=== PATIENT | male | born 1990 | race Caucasian/White ===

== ENCOUNTER 2018-01-18 22:57 | Emergency (ER) | payer OTHER ==
[2018-01-19] MEDS ORDERED: AUGMENTIN 875 MG TAB PO (00:30)
== END 2018-01-19 00:50 | disposition home or self-care (01) ==
LOC: M ED 22:57
DX: S60.811A Abrasion of right wrist, initial encounter (principal); S60.871A Other superficial bite of right wrist, initial encounter; W55.01XA Bitten by cat, initial encounter; Y92.89 Other specified places as the place of occurrence of the external cause
CPT/HCPCS: 99283

== ENCOUNTER 2018-01-27 21:35 | Emergency (ER) | payer OTHER ==
[2018-01-27] MEDS: RABIES VACCINE HUMAN 2.5 INTERNATIONAL UNITS/ML VIAL (90675) IM (21:48)
== END 2018-01-27 22:37 | disposition home or self-care (01) ==
LOC: M ED 21:35
DX: Z23 Encounter for immunization (principal); Z20.3 Contact with and (suspected) exposure to rabies; S61.551A Open bite of right wrist, initial encounter; W55.01XA Bitten by cat, initial encounter; Y92.9 Unspecified place or not applicable; Y93.9 Activity, unspecified; Y99.9 Unspecified external cause status
CPT/HCPCS: 90675